=== PATIENT | male | born 1975 | race Hispanic/Latino ===

== ENCOUNTER 2017-12-10 07:08 | Emergency (ER) | payer MEDICAID ==
--- NOTE | 2017-12-10 07:23 | EDM.PDOC ---
ED HPI GENERAL MEDICAL PROBLEM - General Chief Complaint: Laceration Stated Complaint: AMBULANCE Time Seen by Provider: 12/10/17 07:22 Source of Information: Reports: Patient - History of Present Illness INITIAL COMMENTS - FREE TEXT/NARRATIVE: HISTORY AND PHYSICAL: History of present illness: [Patient presents via EMS Is at the [facility] last night until early hours this morning, presenting around 7 AM Apparently he had some anxiety and felt dehydrated was drinking a lot of water while he was at the [facility] he then recalls settings down on a chair, and he somewhat remembers falling off the chair he awoke outside to a crowd of people and this is resolved the history he relates about the incident I can guess that he may have had seizure-like activity or possible syncope falling off this chair he developed a 6 cm laceration potentially loss of consciousness from hitting his head Although at current Niharika Coma Scale is 15 he is alert interactive denies any fever nausea vomiting diarrhea constipation chest pain shortness breath headache dizziness palpitation no bowel or urine symptoms outside of dark urine ] Review of systems: As per history of present illness and below otherwise all systems reviewed and negative. Past medical history: As per history of present illness and as reviewed below otherwise noncontributory. Surgical history: As per history of present illness and as reviewed below otherwise noncontributory. Social history: No reported history of drug or alcohol abuse. Family history: As per history of present illness and as reviewed below otherwise noncontributory. Physical exam: HEENT: Atraumatic, normocephalic, pupils reactive, negative for conjunctival pallor or scleral icterus, mucous membranes moist, throat clear, neck supple, nontender, trachea midline. Lungs: Clear to auscultation, breath sounds equal bilaterally, chest nontender. Heart: S1S2, regular, negative for clicks, rubs, or JVD. Abdomen: Soft, nondistended, nontender. Negative for masses or hepatosplenomegaly. Negative for costovertebral tenderness. Pelvis: Stable nontender. Genitourinary: Deferred. Rectal: Deferred. Extremities: Atraumatic, negative for cords or calf pain. Neurovascular unremarkable. Neuro: Awake, alert, oriented. Cranial nerves II through XII unremarkable. Cerebellum unremarkable. Motor and sensory unremarkable throughout. Exam nonfocal. Diagnostics: [CBC CMP UA magnesium drug screen alcohol level ]Chest [address] no contrast EKG Therapeutics: [1 L normal saline bolus] lidocaine 5 mL wound cleansed and explored #4 morena, no complication no complaint Patient was considered for admission and had actually initiated the admission process however he elects to sign out AMA for a short period as he states he has to remove some things from his work truck which is really important to AMI of described the risks and benefits associated he states that he needs to do this activity and will return in a couple of hours, hence at current patient is going to sign out AGAINST MEDICAL ADVICE is extended the offer to return for admission Impression: Rhabdomyolysis Dehydration [6 cm laceration running from foreheaextending toward vertex ]Seizure-like activityVersus syncope Elevated TSH , possibly due to seizure Methamphetamine abuse Definitive disposition and diagnosis as appropriate pending reevaluation and review of above. forehead area Pain Score (Numeric/FACES): 5 - Related Data Allergies Allergy/AdvReac Type Severity Reaction Status Date / Time No Known Allergies Allergy Verified 12/10/17 07:13 Home Meds: Home Meds . [No Known Home Meds] 12/10/17 [History] Past Medical History HEENT History: Reports: None Cardiovascular History: Reports: None Respiratory History: Reports: None Gastrointestinal History: Reports: None Genitourinary History: Reports: None Musculoskeletal History: Reports: None Neurological History: Reports: None Psychiatric History: Reports: Anxiety Endocrine/Metabolic History: Reports: None Hematologic History: Reports: None Immunologic History: Reports: None Oncologic (Cancer) History: Reports: None Dermatologic History: Reports: None - Infectious Disease History Infectious Disease History: Reports: None - Past Surgical History Head Surgeries/Procedures: Reports: None Musculoskeletal Surgical History: Reports: Other (See Below) Other Musculoskeletal Surgeries/Procedures:: surgery to jaw area Social & Family History - Family History Family Medical History: Noncontributory - Tobacco Use Smoking Status *Q: Current Every Day Smoker Years of Tobacco use: 20 Packs/Tins Daily: 1 - Recreational Drug Use Recreational Drug Use: No ED ROS GENERAL - Review of Systems Review Of Systems: See Below ED EXAM, SKIN/RASH Exam: See Below Course - Vital Signs Last Recorded V/S: Last Vital Signs Temp 97 F 12/10/17 07:10 Pulse 122 H 12/10/17 07:10 Resp 18 12/10/17 07:10 BP 116/72 12/10/17 07:10 Pulse Ox 98 12/10/17 07:10 - Orders/Labs/Meds Orders: Active Orders 24 hr Category Date Time Status EKG 12 Lead [EKG Documentation Completion] [RC] STAT Care 12/10/17 07:20 Active EKG Documentation Completion [RC] STAT Care 12/10/17 07:23 Inactive Vaccines to be Administered [RC] PER UNIT ROUTINE Care 12/10/17 07:24 Active Chest 1V Frontal [CR] Stat Exams 12/10/17 07:23 Taken Head w Cont [CT] Stat Exams 12/10/17 07:25 Taken DRUG SCREEN, URINE [URCHEM] Stat Lab 12/10/17 09:15 Ordered UA W/MICROSCOPIC [URIN] Stat Lab 12/10/17 09:15 Ordered Sodium Chloride 0.9% [Normal Saline] 1,000 ml Med 12/10/17 10:24 Active IV STAT Medication Orders Sodium Chloride (Normal Saline) 1,000 mls @ 999 mls/hr IV STAT ONE Stop: 12/10/17 11:24 Labs: Laboratory Tests 12/10/17 12/10/17 12/10/17 Range/Units 07:41 07:41 07:41 WBC 15.59 H (4.0-11.0) K/uL RBC 4.94 (4.50-5.90) M/uL Hgb 15.4 (13.0-17.0) g/dL Hct 44.1 (38.0-50.0) % MCV 89.3 (80.0-98.0) fL MCH 31.2 (27.0-32.0) pg MCHC 34.9 (31.0-37.0) g/dL RDW Std Deviation 44.3 (28.0-62.0) fl RDW Coeff of Juan Daniel 14 (11.0-15.0) % Plt Count 310 (150-400) K/uL MPV 9.50 (7.40-12.00) fL Neut % (Auto) 75.2 (48.0-80.0) % Lymph % (Auto) 13.0 L (16.0-40.0) % Lane % (Auto) 10.5 (0.0-15.0) % Eos % (Auto) 1.0 (0.0-7.0) % Baso % (Auto) 0.3 (0.0-1.5) % Neut # (Auto) 11.8 H (1.4-5.7) K/uL Lymph # (Auto) 2.0 (0.6-2.4) K/uL Lane # (Auto) 1.6 H (0.0-0.8) K/uL Eos # (Auto) 0.2 (0.0-0.7) K/uL Baso # (Auto) 0.0 (0.0-0.1) K/uL Nucleated RBC % 0.0 /100WBC Nucleated RBCs # 0 K/uL Sodium 138 (136-148) mmol/L Potassium 3.7 (3.5-5.1) mmol/L Chloride 103 (98-107) mmol/L Carbon Dioxide 23.3 (21.0-32.0) mmol/L BUN 23 H (7.0-18.0) mg/dL Creatinine 1.4 H (0.8-1.3) mg/dL Est Cr Clr Drug Dosing 73.96 mL/min Estimated GFR (MDRD) 55.8 ml/min Glucose 156 H (74-106) mg/dL Calcium 9.3 (8.5-10.1) mg/dL Magnesium 2.4 (1.8-2.4) mg/dL Total Bilirubin 0.5 (0.2-1.0) mg/dL AST 61 H (15-37) IU/L ALT 41 (14-63) IU/L Alkaline Phosphatase 80 (46-116) U/L Creatine Kinase 2459 H (26-308) U/L Troponin I < 0.050 (0.000-0.056) ng/mL Total Protein 8.0 (6.4-8.2) g/dL Albumin 4.4 (3.4-5.0) g/dL Globulin 3.6 H (2.0-3.5) g/dL Albumin/Globulin Ratio 1.2 L (1.3-2.8) TSH 3rd Generation 24.30 H (0.36-3.74) uIU/mL Urine Color Urine Appearance Urine pH (5.0-8.0) Ur Specific [place] (1.001-1.035) Urine Protein (NEGATIVE) mg/dL Urine Glucose (UA) (NEGATIVE) mg/dL Urine Ketones (NEGATIVE) mg/dL Urine Occult Blood (NEGATIVE) Urine Nitrite (NEGATIVE) Urine Bilirubin (NEGATIVE) Urine Urobilinogen (<2.0) EU/dL Ur Leukocyte Esterase (NEGATIVE) Urine RBC (0-2/HPF) Urine WBC (0-5/HPF) Ur Epithelial Cells (NONE-FEW) Amorphous Sediment (NEGATIVE) Urine Bacteria (NEGATIVE) Hyaline Casts (0-2/LPF) Urine Mucus (NONE-MOD) Urine Opiates Screen (NEGATIVE) Ur Oxycodone Screen (NEGATIVE) Urine Methadone Screen (NEGATIVE) Ur Barbiturates Screen (NEGATIVE) Ur Phencyclidine Scrn (NEGATIVE) Ur Amphetamine Screen (NEGATIVE) U Methamphetamines Scrn (NEGATIVE) U Benzodiazepines Scrn (NEGATIVE) U Cocaine Metab Screen (NEGATIVE) U Marijuana (THC) Screen (NEGATIVE) Ethyl Alcohol 3 mg/dL 12/10/17 12/10/17 Range/Units 09:15 09:15 WBC (4.0-11.0) K/uL RBC (4.50-5.90) M/uL Hgb (13.0-17.0) g/dL Hct (38.0-50.0) % MCV (80.0-98.0) fL MCH (27.0-32.0) pg MCHC (31.0-37.0) g/dL RDW Std Deviation (28.0-62.0) fl RDW Coeff of Juan Daniel (11.0-15.0) % Plt Count (150-400) K/uL MPV (7.40-12.00) fL Neut % (Auto) (48.0-80.0) % Lymph % (Auto) (16.0-40.0) % Lane % (Auto) (0.0-15.0) % Eos % (Auto) (0.0-7.0) % Baso % (Auto) (0.0-1.5) % Neut # (Auto) (1.4-5.7) K/uL Lymph # (Auto) (0.6-2.4) K/uL Lane # (Auto) (0.0-0.8) K/uL Eos # (Auto) (0.0-0.7) K/uL Baso # (Auto) (0.0-0.1) K/uL Nucleated RBC % /100WBC Nucleated RBCs # K/uL Sodium (136-148) mmol/L Potassium (3.5-5.1) mmol/L Chloride (98-107) mmol/L Carbon Dioxide (21.0-32.0) mmol/L BUN (7.0-18.0) mg/dL Creatinine (0.8-1.3) mg/dL Est Cr Clr Drug Dosing mL/min Estimated GFR (MDRD) ml/min Glucose (74-106) mg/dL Calcium (8.5-10.1) mg/dL Magnesium (1.8-2.4) mg/dL Total Bilirubin (0.2-1.0) mg/dL AST (15-37) IU/L ALT (14-63) IU/L Alkaline Phosphatase (46-116) U/L Creatine Kinase (26-308) U/L Troponin I (0.000-0.056) ng/mL Total Protein (6.4-8.2) g/dL Albumin (3.4-5.0) g/dL Globulin (2.0-3.5) g/dL Albumin/Globulin Ratio (1.3-2.8) TSH 3rd Generation (0.36-3.74) uIU/mL Urine Color YELLOW Urine Appearance SLT CLOUDY Urine pH 5.5 (5.0-8.0) Ur Specific [place] >= 1.030 (1.001-1.035) Urine Protein 100 (NEGATIVE) mg/dL Urine Glucose (UA) NEGATIVE (NEGATIVE) mg/dL Urine Ketones NEGATIVE (NEGATIVE) mg/dL Urine Occult Blood SMALL H (NEGATIVE) Urine Nitrite NEGATIVE (NEGATIVE) Urine Bilirubin NEGATIVE (NEGATIVE) Urine Urobilinogen 0.2 (<2.0) EU/dL Ur Leukocyte Esterase NEGATIVE (NEGATIVE) Urine RBC 0-2 (0-2/HPF) Urine WBC 0-2 (0-5/HPF) Ur Epithelial Cells FEW (NONE-FEW) Amorphous Sediment MODERATE (NEGATIVE) Urine Bacteria FEW (NEGATIVE) Hyaline Casts 2-4 (0-2/LPF) Urine Mucus LIGHT (NONE-MOD) Urine Opiates Screen NEGATIVE (NEGATIVE) Ur Oxycodone Screen NEGATIVE (NEGATIVE) Urine Methadone Screen NEGATIVE (NEGATIVE) Ur Barbiturates Screen NEGATIVE (NEGATIVE) Ur Phencyclidine Scrn NEGATIVE (NEGATIVE) Ur Amphetamine Screen POSITIVE (NEGATIVE) U Methamphetamines Scrn POSITIVE (NEGATIVE) U Benzodiazepines Scrn NEGATIVE (NEGATIVE) U Cocaine Metab Screen NEGATIVE (NEGATIVE) U Marijuana (THC) Screen NEGATIVE (NEGATIVE) Ethyl Alcohol mg/dL Meds: Medications Generic Name Dose Route Start Last Admin Trade Name Freq PRN Reason Stop Dose Admin Sodium Chloride 1,000 mls @ 999 mls/hr 12/10/17 10:24 Normal Saline IV 12/10/17 11:24 STAT ONE Discontinued Medications Generic Name Dose Route Start Last Admin Trade Name Freq PRN Reason Stop Dose Admin Diphtheria/Tetanus/Acell Pertussis 0.5 ml 12/10/17 07:24 12/10/17 08:02 Adacel IM 12/10/17 07:25 0.5 ml .ONCE ONE Administration Sodium Chloride 1,000 mls @ 999 mls/hr 12/10/17 07:24 12/10/17 07:59 Normal Saline IV 12/10/17 08:24 999 mls/hr STAT ONE Administration Lidocaine HCl Confirm 12/10/17 07:55 12/10/17 08:02 Xylocaine-Mpf 1% Administered 12/10/17 07:56 Not Given Dose 10 mls @ as directed .ROUTE .STK-MED ONE Iopamidol 50 ml 12/10/17 08:52 12/10/17 08:53 Isovue Multipack-370 (76%) IVPUSH 12/10/17 08:53 50 ml ONETIME STA Administration Lidocaine HCl 20 ml 12/10/17 07:33 12/10/17 08:02 Xylocaine 1% INJECT 12/10/17 07:34 Not Given ONETIME ONE Lidocaine HCl 10 ml 12/10/17 08:00 12/10/17 08:01 Xylocaine-Mpf 1% INJECT 12/10/17 08:01 10 ml ONETIME ONE Administration Departure - Departure Time of Disposition: 10:31 Disposition: Against Medical Advice 07 Condition: Fair Clinical Impression: Rhabdomyolysis - Discharge Information Referrals: PCP,None [Primary Care Provider] - Forms: ED Department Discharge Additional Instructions: The following information is given to patients seen in the emergency department who are being discharged to home. This information is to outline your options for follow-up care. We provide all patients seen in our emergency department with a follow-up referral. The need for follow-up, as well as the timing and circumstances, are variable depending upon the specifics of your emergency department visit. If you don't have a primary care physician on staff, we will provide you with a referral. We always advise you to contact your personal physician following an emergency department visit to inform them of the circumstance of the visit and for follow-up with them and/or the need for any referrals to a consulting specialist. The emergency department will also refer you to a specialist when appropriate. This referral assures that you have the opportunity for follow-up care with a specialist. All of these measure are taken in an effort to provide you with optimal care, which includes your follow-up. Under all circumstances we always encourage you to contact your private physician who remains a resource for coordinating your care. When calling for follow-up care, please make the office aware that this follow-up is from your recent emergency room visit. If for any reason you are refused follow-up, please contact the [facility] emergency department at and asked to speak to the emergency department charge nurse. - My Orders Last 24 Hours: My Active Orders 12/10/17 07:20 EKG 12 Lead [EKG Documentation Completion] [RC] STAT 12/10/17 07:23 EKG Documentation Completion [RC] STAT Chest 1V Frontal [CR] Stat 12/10/17 07:24 Vaccines to be Administered [RC] PER UNIT ROUTINE 12/10/17 07:25 Head w Cont [CT] Stat 12/10/17 09:15 DRUG SCREEN, URINE [URCHEM] Stat UA W/MICROSCOPIC [URIN] Stat 12/10/17 10:24 Sodium Chloride 0.9% [Normal Saline] 1,000 ml IV STAT - Assessment/Plan Last 24 Hours: My Active Orders 12/10/17 07:20 EKG 12 Lead [EKG Documentation Completion] [RC] STAT 12/10/17 07:23 EKG Documentation Completion [RC] STAT Chest 1V Frontal [CR] Stat 12/10/17 07:24 Vaccines to be Administered [RC] PER UNIT ROUTINE 12/10/17 07:25 Head w Cont [CT] Stat 12/10/17 09:15 DRUG SCREEN, URINE [URCHEM] Stat UA W/MICROSCOPIC [URIN] Stat 12/10/17 10:24 Sodium Chloride 0.9% [Normal Saline] 1,000 ml IV STAT
[2017-12-10] MEDS ORDERED: Sodium Chloride 0.9% 1,000 ML IV ONE ×2 (07:24→10:24)
[2017-12-10] MEDS ORDERED: Diphtheria,Pertussis(Acell),Tetanus Vaccine 0.5 ML Syringe IM ONE (07:24)
[2017-12-10] MEDS ORDERED: Lidocaine 1% 20 ML MDV INJECT ONE (07:33)
[2017-12-10 08:34] LABS: CHLORIDE,CL 103 mmol/L (98-107); SODIUM,NA 138 mmol/L (136-148)
[2017-12-10] MEDS ORDERED: Iopamidol 755 MG/ML 500 ML Multipack Bottle IVPUSH STA (08:52)
--- NOTE | 2017-12-11 13:41 | CR ---
EXAM DATE: 12/10/17 PATIENT'S AGE: 42 Patient: KATHIE LE Facility: [place], [place] Site . Site : 1975 Study: XRay Chest [id number]/22/2018 8:54:35 AM Ordering Physician: Ammy Moody Final Report: INDICATION: seizure FINDINGS: A single PA chest x-ray shows a normal cardiac silhouette. The lungs show no focal pulmonary opacities. Sharp pleural margins. No pneumothorax. IMPRESSION: No evidence of acute pulmonary abnormalities. Dictated by Pramod Guillory MD @ 12/10/2017 9:05:22 AM Dictated by: Pramod Guillory MD @ 12/10/2017 09:05:29 (Electronic Signature) Report Signed by Proxy. [facility]PITALHolden
--- NOTE | 2017-12-11 13:42 | CT ---
EXAM DATE: 12/10/17 PATIENT'S AGE: 42 Patient: KATHIE LE Facility: [place], [place] Site . Site : 1975 Study: CT Head [id number]/22/2018 8:56:04 AM Ordering Physician: Ammy Moody Final Report: INDICATION: seizure TECHNIQUE: Head CT scan with 50 cc of Isovue-370 given intravenously. FINDINGS: No abnormal foci of altered attenuation or enhancement in the brain parenchyma. No midline shift or mass effect. No hydrocephalus. No abnormal extra-axial fluid collections. No abnormalities of the orbits or skull identified. Right frontal scalp laceration. IMPRESSION: No evidence of acute intracranial abnormalities. Dictated by Pramod Guillory MD @ 12/10/2017 9:10:02 AM Dictated by: Pramod Guillory MD @ 12/10/2017 09:10:11 (Electronic Signature) Report Signed by Proxy. [facility]ITALHolden
== END 2017-12-10 10:30 | disposition left against medical advice (07) ==
LOC: MW.ED 07:08 → EDBD 07:08 → MW.ED 10:30
DX: S01.81XA Laceration without foreign body of other part of head, initial encounter (principal); M62.82 Rhabdomyolysis; E86.0 Dehydration; F15.10 Other stimulant abuse, uncomplicated; F17.210 Nicotine dependence, cigarettes, uncomplicated; W07.XXXA Fall from chair, initial encounter
CPT/HCPCS: 12014; 36415; 70460; 71045; 80053; 80305; 81001; 82550; 83735; 84443; 84484; 85025; 90471; 90715; 93005; 96360; 96361; 99285; G0480; J7040; Q9967